=== PATIENT | female | born 2000 | race Two or more races ===

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

== ENCOUNTER 2021-03-11 16:50 | Emergency (ER) | payer MEDICAID | END 2021-03-11 19:43 | disposition left against medical advice (07) | LOC: ER 16:50 | DX: S99.919A Unspecified injury of unspecified ankle, initial encounter (principal); Z53.21 Procedure and treatment not carried out due to patient leaving prior to being seen by health care provider; X58.XXXA Exposure to other specified factors, initial encounter; Y93.89 Activity, other specified; Y92.89 Other specified places as the place of occurrence of the external cause; Y99.8 Other external cause status ==